=== PATIENT | male | born 1990 | race Caucasian/White ===

== ENCOUNTER 2018-08-18 17:59 | Emergency (ER) | payer OTHER ==
[2018-08-18] MEDS ORDERED: KETAMINE 200 MG/20 ML VIAL IVP ONE (18:03)
[2018-08-18] MEDS ORDERED: NS 1,000 ML IV ONE (18:04)
--- NOTE | 2018-08-18 18:06 | EDPHY ---
H & P Time Seen by Provider: 08/18/18 18:00 HPI/ROS: CHIEF COMPLAINT: Right arm fracture HISTORY OF PRESENT ILLNESS: Patient is a 28-year-old man who comes to the emergency department complaining of deformed right forearm. He was snowboarding at [place] and landed on top of his right arm. He has obvious deformity and instability. No laceration or open fracture. Pulses remain intact. Normal sensation and movement in fingers. He denies other injuries. He denies head neck or back pain. Severity: Severe Modifying factors: Minimal improvement with 20 of morphine EMS and 100 of fentanyl by parenting skills instructor. REVIEW OF SYSTEMS: Constitutional: denies: chills, fever, recent illness, recent injury EENTM: denies: blurred vision, double vision, nose congestion Respiratory: denies: cough, shortness of breath Cardiac: denies: chest pain, irregular heart rate, lightheadedness, palpitations Gastrointestinal/Abdominal: denies: abdominal pain, diarrhea, nausea, vomiting, blood streaked stools Genitourinary: denies: dysuria, frequency, hematuria, pain Musculoskeletal: See HPI Skin: denies: lesions, rash, jaundice, bruising Neurological: denies: headache, numbness, paresthesia, tingling, dizziness, weakness Hematologic/Lymphatic: denies: blood clots, easy bleeding, easy bruising Immunologic/allergic: denies: HIV/AIDS, transplant 10 systems reviewed and negative except as noted EXAM: GENERAL: Well-appearing, well-nourished and in no acute distress. HEAD: Atraumatic, normocephalic. EYES: Pupils equal round and reactive to light, extraocular movements intact, sclera anicteric, conjunctiva are normal. ENT: TMs normal, nares patent, oropharynx clear without exudates. Moist mucous membranes. NECK: Normal range of motion, supple without lymphadenopathy or JVD. LUNGS: Breath sounds clear to auscultation bilaterally and equal. No wheezes rales or rhonchi. HEART: Regular rate and rhythm without murmurs, rubs or gallops. ABDOMEN: Soft, nontender, normoactive bowel sounds. No guarding, no rebound. No masses appreciated. BACK: No CVA tenderness, no spinal tenderness, step-offs or deformities EXTREMITIES: Right mid forearm deformity. Strong pulses distally. Normal hand grasp NEUROLOGICAL: Cranial nerves II through XII grossly intact. Normal speech. 5/ 5 strength, normal movement in all extremities, normal sensation, normal reflexes PSYCH: Normal mood, normal affect. SKIN: Warm, dry, normal turgor, no visible rashes or lesions. Source: Patient Exam Limitations: No limitations - Personal History Current Tetanus/Diphtheria Vaccine: Yes - Medical/Surgical History Hx Asthma: No Hx Chronic Respiratory Disease: No Hx Diabetes: No Hx Cardiac Disease: No Hx Renal Disease: No Hx Cirrhosis: No Hx Alcoholism: No Hx HIV/AIDS: No - Family History Significant Family History: No pertinent family hx - Social History Alcohol Use: Sober Constitutional: Initial Vital Signs Temperature (C) 36.8 C 08/18/18 18:05 Heart Rate 70 08/18/18 18:05 Respiratory Rate 16 08/18/18 18:05 Blood Pressure 119/79 08/18/18 18:05 O2 Sat (%) 99 08/18/18 18:05 O2 Delivery Mode [Post Nasal Cannula Procedure 1st] O2 Delivery Mode [Procedural Non-Rebreather Mask 1st] O2 Delivery Mode [.Immediate Non-Rebreather Mask Pre-Procedure] O2 Delivery Mode Room Air O2 (L/minute) [Post Procedure 6 1st] O2 (L/minute) [Procedural 1st] 15 O2 (L/minute) [.Immediate Pre- 15 Procedure] O2 (L/minute) 2 Allergies/Adverse Reactions: No Known Allergies Allergy (Unverified 08/18/18 18:04) Home Medications: Medication Instructions Recorded oxyCODONE/APAP 5/325 [Percocet 1 - 2 tab PO Q4H PRN #14 tab 08/18/18 5/325 (*)] Medical Decision Making - Diagnostics Imaging: Discussed imaging studies w/ call taker Radiologist Procedures: Procedure: Procedural sedation. Indication: Fracture reduction. A pre-sedation evaluation was completed on the patient just prior to the procedure. Patient is an appropriate candidate for procedural sedation with a normal 3-3-2 rule assessment and a Mallampati airway score of class 1. The risks of the sedation were discussed including but not limited to dysrhythmia, need for airway intervention or general anesthesia, disability, ; and verbal consent obtained. A timeout was observed and patient's identity confirmed. The patient was sedated with ketamine and propofol. The patient was monitored with continuous pulse oximetry, capnography, and monitor and storage bin tender. There were no complications and no significant hypoxemia. I remained at the bedside for the sedation. The total time I spent in the procedural sedation was 30 min. Orthopedic reduction: Patient's forearm fracture was reduced with finger traps and traction. He tolerated this well. The procedure was done with fluoroscopy assistance. Procedure: Splint placement. A plaster sugar-tong splint was applied. After application of the splint I returned and re-examined the patient. The splint was adequately immobilizing the joint and distal to the splint the patient's circulation and sensation was intact. Procedure: Splint placement. A sling was applied. After application of the splint I returned and re- examined the patient. The splint was adequately immobilizing the joint and distal to the splint the patient's circulation and sensation was intact. ED Course/Re-evaluation: 8:45 p.m. the patient is awake and alert. He is in a splint. Dr. Limon is here evaluating him. He will follow up in the office on Monday or Monday and planned surgery next week. Will prescribe Percocet for pain control. Differential Diagnosis: Partial list of the Differential diagnosis considered include but were not limited to; forearm fracture, nerve injury, vascular injury and although unlikely based on the history and physical exam, I also considered neck injury, wrist fracture, shoulder injury. I discussed these differential diagnoses and the plan with the patient as well as the usual and expected course. The patient understands that the diagnosis is provisional and that in medicine we are not always correct and that further workup is often warranted. Usual and customary warnings were given. All of the patient's questions were answered. The patient was instructed to return to the emergency department should the symptoms at all worsen or return, otherwise to followup with the physician as we discussed. - Data Points Laboratory Results: Laboratory Results 08/18/18 18:20 08/18/18 18:20 Medications Given: Discontinued Medications Hydromorphone HCl (Dilaudid) 1 mg IVP EDNOW ONE Stop: 08/18/18 18:27 Last Admin: 08/18/18 18:27 Dose: 1 mg Sodium Chloride (Ns) 1,000 mls @ 0 mls/hr IV ONCE ONE; Wide Open PRN Reason: Protocol Stop: 08/18/18 18:05 Last Admin: 08/18/18 18:14 Dose: 1,000 mls Ketamine HCl 90 mg/ Syringe 1.8 mls @ 108 mls/hr IVP ONCE ONE Stop: 08/18/18 20:28 Last Admin: 08/18/18 20:52 Dose: Not Given Ketamine HCl (Ketamine) 20 mg IVP EDNOW ONE Stop: 08/18/18 18:04 Last Admin: 08/18/18 18:14 Dose: 20 mg Ketamine HCl (Ketamine) 90 mg IVP EDNOW ONE Stop: 08/18/18 20:53 Last Admin: 08/18/18 20:53 Dose: 90 mg Propofol (Diprivan) 350 mg IVP EDNOW ONE Stop: 08/18/18 20:27 Last Admin: 08/18/18 20:28 Dose: 350 mg Departure - Departure Disposition: Home, Routine, Self-Care Clinical Impression: Fracture of forearm, right, closed Qualifiers: Encounter type: initial encounter Qualified Code(s): S52.91XA - Unspecified fracture of right forearm, initial encounter for closed fracture Condition: Fair Instructions: Oxycodone/Acetaminophen (By mouth), Arm Fracture in Adults (ED) Referrals: Patient,NotPresent [Unknown] - As per Instructions Tuan Ware MD [Medical Doctor] - 1-2 days without fail Prescriptions: oxyCODONE/APAP 5/325 [Percocet 5/325 (*)] 1 - 2 tab PO Q4H PRN #14 tab PRN Reason: Pain, Severe
[2018-08-18] MEDS ORDERED: HYDROmorphONE/DILAUDID 1 MG/ML INJ ONE (18:25)
[2018-08-18] MEDS ORDERED: HYDROmorphONE/DILAUDID 2 MG/ML INJ IVP ONE (18:26)
[2018-08-18 18:36] LABS: PLATELET COUNT 187 10^3/uL (150-400)
[2018-08-18 18:59] LABS: INR 1.1 (0.83-1.16); PROTIME(PATIENT) 13.8 SEC (12.0-15.0)
[2018-08-18] MEDS ORDERED: KETAMINE 500 MG/10 ML VIAL ONE (19:18)
[2018-08-18] MEDS ORDERED: PROPOFOL 200 MG/20 ML VIAL ONE ×2 (19:18→19:31)
[2018-08-18] MEDS ORDERED: PROPOFOL 200 MG/20 ML VIAL IVP ONE (20:26)
[2018-08-18] MEDS ORDERED: KETAMINE IVP ONE (20:27)
[2018-08-18] MEDS ORDERED: KETAMINE 500 MG/10 ML VIAL IVP ONE (20:52)
[2018-08-18 21:29] VITALS: BP 134/72
== END 2018-08-18 21:21 | disposition home or self-care (01) ==
PROC: 0PSKXZZ Reposition Right Ulna, External Approach (ICD-10-PCS; principal; 2018-08-18)
PROC: 0PSHXZZ Reposition Right Radius, External Approach (ICD-10-PCS; principal; 2018-08-18)
DX: S52.301A Unspecified fracture of shaft of right radius, initial encounter for closed fracture (principal); S52.201A Unspecified fracture of shaft of right ulna, initial encounter for closed fracture; E86.9 Volume depletion, unspecified; V00.318A Other snowboard accident, initial encounter; Y93.23 Activity, snow (alpine) (downhill) skiing, snowboarding, sledding, tobogganing and snow tubing; Y92.828 Other wilderness area as the place of occurrence of the external cause
CPT/HCPCS: 96374; J1170; J2704